=== PATIENT | female | born 1955 | race Caucasian/White ===

== ENCOUNTER → 2016-12-27 | Outpatient (CLI) | payer BC ==
[~2016-12-27] MED LIST: CIPR-255 PO; CLIN1GEL54 TOP
--- NOTE | 2016-12-28 08:12 | MAMMOGRAPHY REPORT ---
BILATERAL DIGITAL SCREENING MAMMOGRAM WITH CAD: 12/27/2016 CLINICAL HISTORY: Routine screening. Patient has no complaints. TECHNIQUE: Bilateral CC and MLO views were obtained. Current study was also evaluated with a Compute r Aided Detection (CAD) system. COMPARISON: Comparison is made to exams dated: 12/08/2015 mammogram, 03/16/2015 mammogram, 12/05/2014 mammogram, 12/03/2013 mammogram, 06/07/2013 mammogram, and 11/15/2012 mammogram - [facility] enter. BREAST COMPOSITION: The tissue of both breasts is heterogeneously dense, which may obscure small mas ses. FINDINGS: There is an asymmetry in the lateral, middle one third of the right breast, best seen on t he CC view. Although this could represent normal overlapping fibroglandular tissue, additional spot compression. This is views and possible ultrasound are recommended. There are a few benign coarse calcifications in the breasts. No other suspicious mass, architectural distortion or cluster of microcalcifications is seen. IMPRESSION: ACR BI-RADS CATEGORY 0: INCOMPLETE EVALUATION: NEED ADDITIONAL IMAGING EVALUATION The asymmetry in the lateral right breast needs additional evaluation. The patient will be called to schedule an appointment. Approximately 10% of breast cancers are not detected with mammography. A negative mammographic report should not delay biopsy if a clinically suggestive mass is present. Nora Cordova M.D. ay/:12/27/2016 15:46:44 Orchid Worker: Desiree FAUST([place])([place])([place]), [facility] letter sent: Addl Imaging 0 BI-RADS Code: ACR BI-RADS Category 0: Incomplete Evaluation: Need Additional Imaging Evaluation
== END | disposition home or self-care (01) ==
LOC: C.MAMM 08:30
PROVIDERS: ATTEND Obstetrics & Gynecology
DX: Z12.31 Encounter for screening mammogram for malignant neoplasm of breast (principal); N64.89 Other specified disorders of breast

== ENCOUNTER → 2017-01-06 | Outpatient (CLI) | payer BC ==
--- NOTE | 2017-01-06 14:13 | MAMMOGRAPHY REPORT ---
UNILATERAL RIGHT DIGITAL DIAGNOSTIC MAMMOGRAM TOMOSYNTHESIS: 01/06/2017 CLINICAL HISTORY: Callback from screening mammogram for right breast asymmetry. TECHNIQUE: Breast tomosynthesis in addition to standard 2D mammography was performed. Spot compress ion right CC and MLO 2-D and tomosynthesis images were obtained. COMPARISON: Comparison is made to exams dated: 12/08/2015 mammogram, 03/16/2015 ultrasound, 5 mammogram, 12/05/2014 mammogram, 06/07/2013 ultrasound, and 11/15/2011 mammogram - [facility]. BREAST COMPOSITION: The tissue of the right breast is heterogeneously dense, which may obscure small masses. FINDINGS: The previously described asymmetry in the right lateral breast seen on the cc view effaces to a baseline appearance on the additional spot compression views, and has the appearance of normal f ibroglandular tissue on the additional tomosynthesis images. No suspicious mass, architectural disto rtion, or other suspicious finding is seen in this region on the additional images. Findings are con ign and compatible with normal fibroglandular tissue. IMPRESSION: ACR BI-RADS CATEGORY 2: BENIGN The right breast asymmetry effaces on the additional views, and is benign and compatible with normal fibroglandular tissue. There is no mammographic evidence of malignancy. A 1 year screening mammogram is recommended. The patient has been verbally notified of the results. Approximately 10% of breast cancers are not detected with mammography. A negative mammographic report should not delay biopsy if a clinically suggestive mass is present. Suzan Chan M.D. ah/:01/06/2017 10:06:55 Senior System Operator: Felicitas FAUST(Leland)([place]), [facility] letter sent: Normal 1/2 BI-RADS Code: ACR BI-RADS Category 2: Benign
== END | disposition home or self-care (01) ==
LOC: C.MAMM 09:43
PROVIDERS: ATTEND Obstetrics & Gynecology
DX: N64.89 Other specified disorders of breast (principal)

== ENCOUNTER → 2017-10-12 | Outpatient (CLI) | payer OTHER ==
--- NOTE | 2017-10-29 15:05 | CODING QUERY NO DIAGNOSIS ---
TREATMENT RENDERED WITHOUT A DIAGNOSIS To promote full compliance with coding requirements relating to patient care, physician participation is requested in all cases of medical coder uncertainty. Please assist us with providing a diagnosis/symptom for the test(s) below: A diagnosis/symptom was not documented on your Order. A valid diagnosis/symptom is required to bill all insurances. Please remember that we are unable to code a diagnosis of rule out, probable, possible, questionable, or suspected. Tests that require a diagnosis: DOS: 10/12/17 * URINE CULTURE CLEANC CATCH DIAGNOSIS: Provider Signature: Date: Thank you Rayna Veras [employer] Once completed, please kindly fax back to [phone] For questions please call [phone]
== END | disposition home or self-care (01) ==
LOC: C.LABSPEC 15:35
PROVIDERS: ATTEND Family Medicine
DX: N20.9 Urinary calculus, unspecified (principal)

== ENCOUNTER → 2017-10-16 | Outpatient (CLI) | payer OTHER ==
--- NOTE | 2017-10-16 07:10 | DIAGNOSTIC IMAGING REPORT ---
ABD/PELVIS WITHOUT FOR STONE HISTORY: 62 years-old Female FLANK PAIN HEMATURIA acute left flank pain with hematuria COMPARISON: CT abdomen and pelvis 08/01/2014 and 03/17/2010 TECHNIQUE: Multiple axial CT images of the abdomen and pelvis were obtained without use of IV contrast. A dose lowering technique was used consistent with the principals of ZEFERINO. FINDINGS: Imaged lung bases appear generally clear. There is no pneumatosis or pneumoperitoneum. Imaged inferior cardiac chambers are unremarkable. Ovoid hyperdense lesion of the subserosal posterior right hepatic lobe with mild adjacent capsular retraction, image 49 series 2 measuring up to 3.4 x 1.6 cm appears unchanged from study dated 03/17/2010 suggesting benign etiology. Liver is otherwise within normal limits. No intrahepatic biliary ductal dilation. The spleen, pancreas and right adrenal gland are unremarkable. Punctate calcification about the lateral limb left adrenal gland suggests prior hemorrhage or infection. Probable cyst of the superior pole left kidney, 7 mm. No renal or ureteral calculi. No obstructive uropathy. There are several phleboliths noted about the pelvis. Decompressed bladder. Uterus and adnexa are unremarkable. The aorta and IVC are within normal limits. No pathologically enlarged lymph nodes. No bowel obstruction or focal bowel wall thickening. There is moderate volume of formed stool throughout the colon. The appendix appears normal. No ascites or mesenteric inflammatory changes. Soft tissues appear to be within normal limits. The bones appear to be intact. The alignment of the left iliac bone. Multilevel intervertebral disc space narrowing. Posterior disc osteophyte complex formation at L1-L2 appears to cause at least mild central canal stenosis. Posterior disc osteophyte complications formation is also seen at T12-L1. Mild levoscoliosis of the lumbar spine. IMPRESSION: 1. Suggested constipation without bowel obstruction or focal bowel wall thickening. 2. Normal appendix. 3. No renal calculi or obstructive uropathy. 4. Subserosal hyperdense lesion of the posterior right hepatic lobe measuring up to 3.3 cm is unchanged from 03/17/2010 suggesting benign etiology. 5. Multilevel intervertebral disc space narrowing with posterior disc osteophyte complex formations as above. The above report was generated using voice recognition software. It may contain grammatical, syntax or spelling errors. Electronically signed by: Ahmet Anand M.D. 10/16/2017 7:09 AM Dictated Date/Time: 10/16/2017 6:58 AM
== END | disposition home or self-care (01) ==
LOC: C.CTS 06:41
PROVIDERS: ATTEND Family Medicine
DX: R10.9 Unspecified abdominal pain (principal); R31.9 Hematuria, unspecified; K76.9 Liver disease, unspecified; M99.73 Connective tissue and disc stenosis of intervertebral foramina of lumbar region; M25.78 Osteophyte, vertebrae